=== PATIENT | female | born 1990 | race Caucasian/White ===

== ENCOUNTER 2018-10-28 13:32 | Inpatient (IN) | payer OTHER ==
--- NOTE | 2018-10-28 14:13 | PDOC ---
Rapid Medical Evaluation Chief Complaint: Nausea/Vomiting Time Seen by Provider: 10/28/18 14:05 Medical Evaluation: Allergies Allergy/AdvReac Type Severity Reaction Status Date / Time No Known Allergies Allergy Verified 10/28/18 14:04 10/28/18 14:06 I have performed a brief in-person evaluation of this patient. The patient presents with a chief complaint of:L flank/pelvic pain w/ n/v and ? dysuria today. Denies pmhx Pertinent physical exam findings:Pt radha significantly uncomfortable here w/ L suprapubic ttp and L CVAT I have ordered the following:labs/ua/meds The patient will proceed to the ED for further evaluation. 10/28/18 14:13 Discharge Disposition - Diagnosis Flank pain - Referrals - Patient Instructions - Post Discharge Activity
[2018-10-28] MEDS ORDERED: KETOROLAC TROMETHAMINE 30 MG/1 ML VIAL IVPUSH ONE (14:17)
[2018-10-28] MEDS ORDERED: KETOROLAC TROMETHAMINE 30 MG/1 ML VIAL ONE (14:29)
[2018-10-28] MEDS ORDERED: ONDANSETRON 4 MG/2 ML VIAL ONE (14:29)
[2018-10-28] MEDS ORDERED: SODIUM CHLORIDE 1,000 ML IV STA (14:31)
[2018-10-28] MEDS ORDERED: ONDANSETRON 4 MG/2 ML VIAL IVPUSH ONE (14:31)
--- NOTE | 2018-10-28 14:31 | PDOC ---
History of Present Illness - General History Source: Patient Exam Limitations: No Limitations <Estellemario albertoMaria Esther floresecca - Last Filed: 10/28/18 18:40> <Ingrid Hoyos - Last Filed: 10/31/18 10:05> - General Chief Complaint: Nausea/Vomiting Stated Complaint: NAUSEA/VOMITING Time Seen by Provider: 10/28/18 14:05 Past History - Travel Traveled outside of the country in the last 30 days: No Close contact w/someone who was outside of country & ill: No - Suicide/Smoking/Psychosocial Hx Smoking History: Never smoked Information on smoking cessation initiated: No Hx Alcohol Use: No Drug/Substance Use Hx: No <Carey Blanchard - Last Filed: 10/28/18 18:40> <Ingrid Hoyos - Last Filed: 10/31/18 10:05> - Past Medical History Allergies/Adverse Reactions: Allergies Allergy/AdvReac Type Severity Reaction Status Date / Time No Known Allergies Allergy Verified 10/28/18 14:04 Review of Systems - Review of Systems Able to Perform ROS?: Yes Comments:: 10/28/18 18:23 CONSTITUTIONAL: Absent: fever, chills, diaphoresis, generalized weakness, malaise, loss of appetite HEENT: Absent: rhinorrhea, nasal congestion, throat pain, throat swelling, difficulty swallowing, mouth swelling, ear pain, eye pain, visual Changes CARDIOVASCULAR: Absent: chest pain, loss of consciousness, palpitations, irregular heart rate, peripheral edema RESPIRATORY: Absent: cough, shortness of breath, dyspnea with exertion, orthopnea, wheezing, stridor, hemoptysis GASTROINTESTINAL: Present: vomiting Absent: abdominal pain, abdominal distension, nausea, diarrhea, constipation, melena, hematochezia GENITOURINARY: Present: dysuria, frequency, flank pain Absent: urgency, hesitancy, hematuria, genital pain MUSCULOSKELETAL: Absent: myalgia, arthralgia, joint swelling SKIN: Absent: rash, itching, pallor HEMATOLOGIC/IMMUNOLOGIC: Absent: easy bleeding, easy bruising, lymphadenopathy, frequent infections ENDOCRINE: Absent: unexplained weight gain, unexplained weight loss, heat intolerance, cold intolerance NEUROLOGIC: Absent: headache, focal weakness or paresthesias, dizziness, unsteady gait, seizure, mental status changes, bladder or bowel incontinence PSYCHIATRIC: Absent: anxiety, depression, suicidal or homicidal ideation, hallucinations. Is the patient limited Maltese proficient: No <Carey Blanchard - Last Filed: 10/28/18 18:40> *Physical Exam - Vital Signs Last Vital Signs Temp Pulse Resp BP Pulse Ox 98.2 F 91 H 16 131/77 99 10/28/18 14:05 10/28/18 14:05 10/28/18 14:05 10/28/18 14:05 10/28/18 14:05 - Physical Exam Comments: 10/28/18 18:24 GENERAL: Well developed, well nourished. Awake and alert. In moderate distress, actively vomiting HEENT: Normocephalic, atraumatic. PERRLA, EOMI. No conjunctival pallor. Sclera are non- icteric. Moist mucous membranes. Oropharynx is clear. NECK: Supple. Full ROM. No JVD. Carotid pulses 2+ and symmetric, without bruits. No thyromegaly. No lymphadenopathy. CARDIOVASCULAR: Regular rate and rhythm. No murmurs, rubs, or gallops. Distal pulses are 2+ and symmetric. PULMONARY: No evidence of respiratory distress. Lungs clear to auscultation bilaterally. No wheezing, rales or rhonchi. ABDOMINAL: TTP of the suprapubic region. Soft. Non-distended. No rebound or guarding. No organomegaly. Normoactive bowel sounds. MUSCULOSKELETAL Normal range of motion at all joints. No bony deformities or tenderness. (+) L CVA tenderness. EXTREMITIES: No cyanosis. No clubbing. No edema. No calf tenderness. SKIN: Warm and dry. Normal capillary refill. No rashes. No jaundice. NEUROLOGICAL: Alert, awake, appropriate. Cranial nerves 2-12 intact. No deficits to light touch and temperature in face, upper extremities and lower extremities. No motor deficits in the in face, upper extremities and lower extremities. Normoreflexic in the upper and lower extremities. Normal speech. Toes are down- going bilaterally. Gait is normal without ataxia. PSYCHIATRIC: Cooperative. Good eye contact. Appropriate mood and affect. <Carey Blanchard - Last Filed: 10/28/18 18:40> - Vital Signs Last Vital Signs Temp Pulse Resp BP Pulse Ox 99.2 F 72 18 126/84 100 10/30/18 15:50 10/30/18 15:50 10/30/18 15:50 10/30/18 15:50 10/30/18 09:00 <Ingrid Hoyos - Last Filed: 10/31/18 10:05> ED Treatment Course - LABORATORY CBC & Chemistry Diagram: 10/28/18 15:00 10/28/18 15:00 <Carey Blanchard - Last Filed: 10/28/18 18:40> - LABORATORY CBC & Chemistry Diagram: 10/30/18 08:24 10/30/18 08:24 - ADDITIONAL ORDERS Additional order review: 10/28/18 15:00 Urine Culture - Final Urine - Urine Clean Catch Normal Urogenital Louann 10/28/18 15:00 RBC 4.55 MCV 84.9 MCHC 33.7 RDW 15.0 MPV 9.5 Neutrophils % 71.2 Lymphocytes % 17.9 Monocytes % 9.1 Eosinophils % 1.2 Basophils % 0.6 - Medications Given in the ED: ED Medications Discontinued Medications Generic Name Dose Route Start Last Admin Trade Name Jaqueline PRN Reason Stop Dose Admin Acetaminophen 1,000 mg 10/28/18 18:19 10/28/18 19:03 Ofirmev Injection - IVPB 10/28/18 18:20 1,000 mg ONCE ONE Administration Docusate Sodium 100 mg 10/28/18 22:00 10/30/18 10:07 Colace - PO 100 mg BID ANDREW Administration Sodium Chloride 1,000 mls @ 1,000 mls/hr 10/28/18 14:31 10/28/18 14:56 Normal Saline - IV 10/28/18 15:30 1,000 mls/hr ASDIR STA Administration Ceftriaxone Sodium 1,000 mg/ 50 mls @ 100 mls/hr 10/28/18 18:21 10/28/18 19: 03 Dextrose IVPB 10/28/18 18:50 100 mls/hr ONCE ONE Administration Sodium Chloride 1,000 mls @ 100 mls/hr 10/29/18 08:45 10/30/18 07:58 Normal Saline - IV 100 mls/hr ASDIR ANDREW Administration Ceftriaxone Sodium 1 gm/ 50 mls @ 100 mls/hr 10/29/18 10:00 10/30/18 10:07 Dextrose IVPB 100 mls/hr DAILY ANDREW Administration Protocol Ketorolac Tromethamine 30 mg 10/28/18 14:17 10/28/18 14:38 Toradol Injection - IVPUSH 10/28/18 14:18 30 mg ONCE ONE Administration Ondansetron HCl 4 mg 10/28/18 14:31 10/28/18 14:38 Zofran Injection IVPUSH 10/28/18 14:32 4 mg ONCE ONE Administration Senna 2 tab 10/28/18 22:00 10/29/18 22:15 Senna - PO Not Given HS ANDREW Tamsulosin HCl 0.4 mg 10/28/18 18:31 10/28/18 19:58 Flomax - PO 10/28/18 18:32 0.4 mg ONCE ONE Administration Vancomycin HCl 1,000 mg 10/28/18 22:58 10/29/18 00:27 Vancomycin (Pre-Docked) IVPB 10/28/18 22:59 1,000 mg ONCE ONE Administration Protocol <Ingrid Hoyos - Last Filed: 10/31/18 10:05> Medical Decision Making - Medical Decision Making 10/28/18 18:25 The patient is a 28-year-old female no past medical history who presents to the ER today with sudden onset of nausea vomiting and left flank pain. She states her symptoms started approximately an hour prior to arrival. She notes that the pain is very sharp. he notes that it is mostly on the left side however she is also having right-sided pain and associated nausea and vomiting.She has no past medical history of kidney stones. Denies fevers, chills, chest pain, shortness of breath, diarrhea, constipation dysuria and hematuria A/P: Left-sided flank pain On exam patient with left CVA tenderness, actively vomiting and uncomfortable appearing High suspicion for stone. toradol and Zofran given with relief of symptoms Basic labs, urine/culture and spiral CT ordered Urine is positive for infection with positive leukocytes and white blood cells. CT spiral shows a3 mm stone in the left UVJ with associated moderate hydronephrosis Given positive stone with urinary tract infection will admit at this time 1 g of ceftriaxone given. Hospitalist paged Urology florist supplies salesperson paged <Carey Blanchard - Last Filed: 10/28/18 18:40> *DC/Admit/Observation/Transfer - Discharge Dispostion Decision to Admit order: Yes <Carey Blanchard - Last Filed: 10/28/18 18:40> - Attestations Physician Attestion: I reviewed the case with the mid-level practitioner and agree with the mid- level practitioner's assessment, diagnosis and disposition. <Ingrid Hoyos - Last Filed: 10/31/18 10:05> Diagnosis at time of Disposition: Kidney stone UTI (urinary tract infection) Qualifiers: Urinary tract infection type: acute cystitis Hematuria presence: with hematuria Qualified Code(s): N30.01 - Acute cystitis with hematuria - Discharge Dispostion Disposition: HOME Condition at time of disposition: Improved
[2018-10-28 15:15] LABS: BASO % 0.6 % (0-2.0); EOS % 1.2 % (0-4.5); HEMATOCRIT 38.7 % (32.4-45.2); LYMPH % 17.9 % (8-40); MCH 28.6 pg (25.7-33.7); MCHC 33.7 g/dl (32.0-36.0); MEAN CELL VOLUME 84.9 fl (80-96); MEAN PLT VOLUME 9.5 fl (7.5-11.1); MONO % 9.1 % (3.8-10.2); NEUT % 71.2 % (42.8-82.8); PLATELET COUNT 262 K/MM3 (134-434); RBC 4.55 M/mm3 (3.60-5.2); WHITE BLOOD COUNT 6.4 K/mm3 (4.0-10.0)
[2018-10-28 15:30] LABS: EPI CELLS 31.7 /HPF (0-5/HPF); HYALINE CASTS 25 /lpf (0-8); PH,URINE >= 9.0 (5.0-8.0); URINE APPEARANCE CLOUDY; URINE BACTERIA 389.2 /hpf (NEGATIVE); URINE BILIRUBIN NEGATIVE (NEGATIVE); URINE COLOR YELLOW; URINE GLUCOSE (UA) NEGATIVE (NEGATIVE); URINE KETONE TRACE (NEGATIVE); URINE LEUK ESTERASE 1+ (NEGATIVE); URINE NITRITE NEGATIVE (NEGATIVE); URINE PROTEIN 1+ (NEGATIVE); URINE RBC 72 /hpf (0-4); URINE UROBILINOGEN 0.2 mg/dL (0.2-1.0); URINE WBC 9 /hpf (0-5)
[2018-10-28 15:47] LABS: ALBUMIN 4.2 g/dl (3.4-5.0); BLOOD UREA NITROGEN 16.1 mg/dL (7-18); CALCIUM 9.4 mg/dL (8.5-10.1); TOT PROT 7.5 g/dl (6.4-8.2)
[2018-10-28] MEDS ORDERED: ACETAMINOPHEN 1000 MG/100 ML VIAL (NON FORMULARY) IVPB ONE (18:19)
[2018-10-28] MEDS ORDERED: CEFTRIAXONE 1,000 MG in DEXTROSE 5%-WATER - 50 ML IVPB ONE (18:21)
[2018-10-28] MEDS ORDERED: TAMSULOSIN HCL 0.4 MG CAP PO ONE (18:31)
[2018-10-28] MEDS ORDERED: ACETAMINOPHEN 325 MG TABLET (FP) PO PRN (18:40)
[2018-10-28] MEDS ORDERED: KETOROLAC TROMETHAMINE 15 MG/ML VIAL IVPUSH PRN (18:40)
[2018-10-28] MEDS ORDERED: CEFTRIAXONE 1 GM/50 ML BAG ONE (19:02)
[2018-10-28] MEDS ORDERED: ACETAMINOPHEN INJECTION 100 ML IVPB ONE (19:02)
--- NOTE | 2018-10-28 19:27 | HP ---
Admitting History and Physical - Primary Care Physician PCP: none - Admission Chief Complaint: left sided pain and pelvic pain History of Present Illness: 28 year old F with no significant past medical history reports left flank pain which began on the morning (11:30am) of 10/28; associated symptoms include nausea , suprapubic pain and five episodes of vomiting. She denies fever/chills, diarrhea, dysuria, hematuria, chest pain or SOB. She was driven to ED by family friend for urgent evaluation. In ED vitals were: BP 131/77, HR 91, RR 16, O2 sat 99%, T 98.2. Flank pain, N/V managed with Toradol and Zofran UA: +1 Leuk, +2 blood, +1 protein, trace ketones and bacteria 389--> ceftriaxone 1g given CT spiral shows a3 mm stone in the left UVJ with associated moderate hydronephrosis pt admitted for further management of UTI/left obstructing renal stone History Source: Patient Limitations to Obtaining History: No Limitations - Past Medical History ...: No (urine preg test negative) - Advance Directives Advance Directives: Yes: Health Care Proxy (: Bon [place]o [phone]) - Smoking History Smoking history: Never smoked - Alcohol/Substance Use Hx Alcohol Use: No History of Substance Use: reports: None - Social History Usual Living Arrangement: Yes: With Spouse, With Child ADL: Independent Occupation: unemployed History of Recent Travel: No Other Social History: Born in [facility] Home Medications - Allergies Allergies/Adverse Reactions: Allergies Allergy/AdvReac Type Severity Reaction Status Date / Time No Known Allergies Allergy Verified 10/28/18 14:04 - Home Medications Home Medications: Ambulatory Orders NK [No Known Home Medication] 10/28/18 Family Disease History - Family Disease History Family Disease History: Other: Father (alive (66) well), Mother (alive (51) well ), Sister (alive (25) asthma) Review of Systems - Review of Systems Constitutional: reports: No Symptoms Eyes: reports: No Symptoms HENT: reports: No Symptoms Neck: reports: No Symptoms Cardiovascular: reports: No Symptoms Respiratory: reports: No Symptoms Gastrointestinal: reports: Nausea, Vomiting Genitourinary: reports: Flank Pain, Other (pelvic pain) Breasts: reports: No Symptoms Reported Musculoskeletal: reports: No Symptoms Integumentary: reports: No Symptoms Neurological: reports: No Symptoms Endocrine: reports: No Symptoms Hematology/Lymphatic: reports: No Symptoms Psychiatric: reports: No Symptoms Physical Examination Vital Signs: Vital Signs Temperature 98.2 F 10/28/18 14:05 Pulse Rate 91 H 10/28/18 14:05 Respiratory Rate 16 10/28/18 14:05 Blood Pressure 131/77 10/28/18 14:05 O2 Sat by Pulse Oximetry (%) 99 10/28/18 14:05 Constitutional: Yes: Well Nourished, No Distress, Calm Eyes: Yes: Conjunctiva Clear, EOM Intact, PERRL HENT: Yes: Atraumatic, Normocephalic Neck: Yes: Supple, Trachea Midline Cardiovascular: Yes: Regular Rate and Rhythm Respiratory: Yes: Regular, CTA Bilaterally Gastrointestinal: Yes: Normal Bowel Sounds, Soft ...Rectal Exam: Yes: Deferred Renal/: Yes: CVA Tenderness - Left, CVA Tenderness - Right, Other (bladder tenderness) Musculoskeletal: Yes: WNL Extremities: Yes: WNL Edema: No Peripheral Pulses WNL: Yes Peripheral Pulses: Left Radial: 2+, Right Radial: 2+, Left Doralis Pedis: 2+, Right Dorsalis Pedis: 2+ Integumentary: Yes: WNL Neurological: Yes: Alert, Oriented ...Motor Strength: WNL Psychiatric: Yes: Alert, Oriented Labs: CBC, BMP 10/28/18 15:00 10/28/18 15:00 Imaging - Results Cat Scan: Report Reviewed (ABD/PELV CT 10/27/2018 Impression: 3mm Left ureterovesical junction calculus is seen with resultant mild hydronephrosis. 2mm non-obstructing right renal calculus. Read by Dr. Ambrocio Tovar MD) Problem List - Problems (1) Prophylactic measure Assessment/Plan: bowel regimen with senna and colace OOB to chair Ambulate no need for SC heparin Code(s): Z29.9 - ENCOUNTER FOR PROPHYLACTIC MEASURES, UNSPECIFIED (2) Kidney stone Assessment/Plan: urology consult placed IVF hydration overnight Ketorolac PRN severe pain APAP PRN moderate pain Code(s): N20.0 - CALCULUS OF KIDNEY (3) UTI (urinary tract infection) Assessment/Plan: ceftriaxone 1g daily for UTI, (may need ID approval, pharmacy approved a one time dose for the morning of 10/29) Vanco 1g overnight for temp 101.2 f/u urine culture blood cultures x 2 sent trend WBC and temp curve Code(s): N39.0 - URINARY TRACT INFECTION, SITE NOT SPECIFIED Qualifiers: Urinary tract infection type: acute cystitis Hematuria presence: with hematuria Qualified Code(s): N30.01 - Acute cystitis with hematuria Assessment/Plan DISPO: home when stable Code status: Full Visit type - Emergency Visit Emergency Visit: Yes ED Registration Date: 10/28/18 Care time: The patient presented to the Emergency Department on the above date and was hospitalized for further evaluation of their emergent condition. - New Patient This patient is new to me today: Yes Date on this admission: 10/28/18 - Critical Care Critical Care patient: No
[2018-10-28] MEDS ORDERED: TAMSULOSIN HCL 0.4 MG CAP ONE (19:48)
[2018-10-28] MEDS ORDERED: CEFTRIAXONE 1 GM in DEXTROSE 5%-WATER - 50 ML IVPB ONE (20:00)
[2018-10-28] MEDS ORDERED: SENNOSIDES 8.6MG TABLET (FP) PO ONE (22:22)
[2018-10-28] MEDS ORDERED: DOCUSATE SODIUM 100 MG CAPSULE (FP) PO ONE (22:23)
[2018-10-28] MEDS: SENNOSIDES 8.6MG TABLET (FP) PO SCH (22:32)
[2018-10-28] MEDS: DOCUSATE SODIUM 100 MG CAPSULE (FP) PO SCH (22:32)
[2018-10-28] MEDS ORDERED: VANCOMYCIN 1 GM in D5W (PRE-DOCKED) 1,000 MG/250 ML IVPB ONE (22:58)
[2018-10-29 00:21] VITALS: BMI 22.7
[2018-10-29] MEDS ORDERED: CEFTRIAXONE 1 GM in DEXTROSE 5%-WATER - 50 ML IVPB ONE (08:00)
--- NOTE | 2018-10-29 08:16 | CONSULT ---
Consult - text type - Consultation Consultation Note: CC: left ureteral stone parially obstructing with UTI HPI: Patient is a 28 year old female with history of left flank pain. Patient on presentation stated she experienced nausea an vomiting. She denied gross hematuria, fever, or chills. Patient is currently comfortable without nausea, vomiting, fever, or chills. PE VSS; afeb abd-soft, NT; no CVAT bilaterally CT scan reviewed UA noted renal function and WBC WNL imp uti distal 3mm ureteral stone which is partially obstructing plan hydration strain all urine flomax Rocephin follow conservatively as stone should pass follow urine culture
[2018-10-29 08:31] LABS: BASO % 0.6 % (0-2.0); EOS % 4.3 % (0-4.5); HEMATOCRIT 34.8 % (32.4-45.2); HEMOGLOBIN 11.6 GM/dL (10.7-15.3); LYMPH % 37.2 % (8-40); MCH 28.6 pg (25.7-33.7); MCHC 33.4 g/dl (32.0-36.0); MEAN CELL VOLUME 85.8 fl (80-96); MEAN PLT VOLUME 9.5 fl (7.5-11.1); MONO % 11.3 % (3.8-10.2); NEUT % 46.6 % (42.8-82.8); PLATELET COUNT 216 K/MM3 (134-434); RBC 4.05 M/mm3 (3.60-5.2); RDW 15.1 % (11.6-15.6); WHITE BLOOD COUNT 5.6 K/mm3 (4.0-10.0)
--- NOTE | 2018-10-29 08:36 | PN ---
Physical Exam: SUBJECTIVE: Patient seen and examined at bedside. Patient denies pain, fever/ chills, diarrhea, dysuria, hematuria, chest pain or SOB. PT states she has been instructed on straining her urine. PT states she normally have bowel movements every other day OBJECTIVE: Vital Signs Period Temp Pulse Resp BP Sys/Fontanez Pulse Ox Last 24 Hr 98.1 F-101.2 F 67-91 16-18 96-131/55-77 99-99 GENERAL: The patient is awake, alert, and fully oriented, in no acute distress. HEAD: Normal with no signs of trauma. EYES: PERRL, extraocular movements intact, sclera anicteric, conjunctiva clear. No ptosis. NECK: Trachea midline, full range of motion, supple. LUNGS: Breath sounds equal, clear to auscultation bilaterally, no wheezes, no crackles, no accessory muscle use. HEART: Regular rate and rhythm, S1, S2 ABDOMEN: Soft, nontender, nondistended, normoactive bowel sounds, no guarding, no rebound, no hepatosplenomegaly, no masses. Renal/: CVA Tenderness - Left, CVA Tenderness - Right, Other (bladder tenderness) EXTREMITIES: 2+ pulses, warm, well-perfused, no edema. NEUROLOGICAL: Normal speech, gait not observed. PSYCH: Normal mood, normal affect. SKIN: Warm, dry, normal turgor, no rashes or lesions noted Laboratory Results - last 24 hr 10/28/18 10/28/18 10/28/18 15:00 15:00 15:00 WBC 6.4 RBC 4.55 Hgb 13.0 Hct 38.7 MCV 84.9 MCH 28.6 MCHC 33.7 RDW 15.0 Plt Count 262 MPV 9.5 Absolute Neuts (auto) 4.6 Neutrophils % 71.2 Lymphocytes % 17.9 Monocytes % 9.1 Eosinophils % 1.2 Basophils % 0.6 Nucleated RBC % 0 Sodium 139 Potassium 4.0 Chloride 108 H Carbon Dioxide 25 Anion Gap 6 L BUN 16.1 Creatinine 1.0 Est GFR (CKD-EPI)AfAm 89.41 Est GFR (CKD-EPI)NonAf 77.15 Random Glucose 113 H Calcium 9.4 Total Bilirubin 1.0 AST 13 L ALT 20 Alkaline Phosphatase 93 Total Protein 7.5 Albumin 4.2 Urine Color Urine Appearance Urine pH Ur Specific [place] Urine Protein Urine Glucose (UA) Urine Ketones Urine Blood Urine Nitrite Urine Bilirubin Urine Urobilinogen Ur Leukocyte Esterase Urine WBC (Auto) Urine RBC (Auto) Urine Casts (Auto) U Pathogenic Cast Auto U Epithel Cells (Auto) U Sm Round Cell (Auto) Urine Bacteria (Auto) Urine HCG, Qual Negative 10/28/18 15:00 WBC RBC Hgb Hct MCV MCH MCHC RDW Plt Count MPV Absolute Neuts (auto) Neutrophils % Lymphocytes % Monocytes % Eosinophils % Basophils % Nucleated RBC % Sodium Potassium Chloride Carbon Dioxide Anion Gap BUN Creatinine Est GFR (CKD-EPI)AfAm Est GFR (CKD-EPI)NonAf Random Glucose Calcium Total Bilirubin AST ALT Alkaline Phosphatase Total Protein Albumin Urine Color Yellow Urine Appearance Cloudy Urine pH >= 9.0 H Ur Specific [place] 1.028 Urine Protein 1+ H Urine Glucose (UA) Negative Urine Ketones Trace H Urine Blood 2+ H Urine Nitrite Negative Urine Bilirubin Negative Urine Urobilinogen 0.2 Ur Leukocyte Esterase 1+ H Urine WBC (Auto) 9 Urine RBC (Auto) 72 Urine Casts (Auto) 25 U Pathogenic Cast Auto None U Epithel Cells (Auto) 31.7 U Sm Round Cell (Auto) None Urine Bacteria (Auto) 389.2 Urine HCG, Qual Active Medications Generic Name Dose Route Start Last Admin Trade Name Freq PRN Reason Stop Dose Admin Acetaminophen 650 mg 10/28/18 18:40 Tylenol - PO Q6H PRN PAIN LEVEL 4 - 6 Docusate Sodium 100 mg 10/28/18 22:00 10/28/18 22:32 Colace - PO 100 mg BID ANDREW Administration Sodium Chloride 1,000 mls @ 100 mls/hr 10/29/18 08:45 Normal Saline - IV ASDIR ANDREW Ceftriaxone Sodium 1 gm/ 100 mls @ 100 mls/hr 10/30/18 08:00 Dextrose IVPB DAILY [facility] Protocol Ketorolac Tromethamine 15 mg 10/28/18 18:40 Toradol Injection - IVPUSH 11/02/18 18:39 Q6H PRN PAIN LEVEL 7 - 10 Senna 2 tab 10/28/18 22:00 10/28/18 22:32 Senna - PO 2 tab HS ANDREW Administration ASSESSMENT/PLAN: 28 year old F with no significant past medical history reports left flank pain which began on the morning (11:30am) of 10/28; associated symptoms include nausea , suprapubic pain and five episodes of vomiting. Kidney stone -Urology Consulted Plan as follows -hydration -strain all urine -flomax -Rocephin -follow conservatively as stone should pass -follow urine culture -Monitor BUN/Creat -IVF hydration NS 100ml/hr -Ketorolac PRN severe pain -APAP PRN moderate pain UTI (urinary tract infection) -Per urology consult, will continue Rocephin 1gm daily IV -Blood culture pending -Urine Culture Pending F/E/N -PO and IV Fluids -Repleat as indicated DVT Prophylaxis -OOB to chair -Early Ambulation -SCDs Dispo Continues to require inpatient status Full Code Visit type - Emergency Visit Emergency Visit: Yes ED Registration Date: 10/28/18 Care time: The patient presented to the Emergency Department on the above date and was hospitalized for further evaluation of their emergent condition. - New Patient This patient is new to me today: Yes Date on this admission: 10/29/18 - Critical Care Critical Care patient: No
[2018-10-29 08:43] LABS: INR 1.13 (0.83-1.09); PROTHROMBIN TIME (PATIENT) 13.4 SEC (9.7-13.0)
[2018-10-29 08:44] LABS: ACTIVATED PTT 32.2 SECONDS (25.2-36.5)
[2018-10-29] MEDS ORDERED: cefTRIAXone SODIUM 1 GM VIAL ONE (09:10)
[2018-10-29] MEDS ORDERED: DEXTROSE 5%-WATER - 50 ML IVPB ONE (09:10)
[2018-10-29] MEDS: DOCUSATE SODIUM 100 MG CAPSULE (FP) PO SCH ×2 (09:15→22:15)
[2018-10-29] MEDS: CEFTRIAXONE 1 GM in DEXTROSE 5%-WATER - 50 ML IVPB SCH (09:16)
[2018-10-29] MEDS: SODIUM CHLORIDE 1,000 ML IV SCH ×2 (09:17→21:11)
[2018-10-29 09:18] LABS: ALBUMIN 3.6 g/dl (3.4-5.0); BLOOD UREA NITROGEN 10.3 mg/dL (7-18); CALCIUM 9.2 mg/dL (8.5-10.1); CREATININE 0.8 mg/dL (0.55-1.3); MAGNESIUM 2.1 mg/dL (1.8-2.4); PHOSPHOROUS 3.6 mg/dL (2.5-4.9); POTASSIUM 4.1 mmol/L (3.5-5.1); TOT PROT 6.4 g/dl (6.4-8.2)
[2018-10-29] MEDS: SENNOSIDES 8.6MG TABLET (FP) PO SCH (22:15)
[2018-10-30] MEDS: SODIUM CHLORIDE 1,000 ML IV SCH (07:58)
[2018-10-30 08:40] LABS: HEMATOCRIT 34.1 % (32.4-45.2); HEMOGLOBIN 11.3 GM/dL (10.7-15.3); MCH 28.6 pg (25.7-33.7); MCHC 33.2 g/dl (32.0-36.0); MEAN PLT VOLUME 8.9 fl (7.5-11.1); RBC 3.97 M/mm3 (3.60-5.2); RDW 15.4 % (11.6-15.6); WHITE BLOOD COUNT 4.5 K/mm3 (4.0-10.0)
[2018-10-30 09:08] LABS: ALBUMIN 3.2 g/dl (3.4-5.0); BILIRUBIN,TOTAL 0.7 mg/dL (0.2-1); BLOOD UREA NITROGEN 9.7 mg/dL (7-18); CALCIUM 8.1 mg/dL (8.5-10.1); CREATININE 0.7 mg/dL (0.55-1.3); MAGNESIUM 1.9 mg/dL (1.8-2.4); POTASSIUM 3.9 mmol/L (3.5-5.1)
[2018-10-30 09:15] LABS: PLATELET COUNT 221 K/MM3 (134-434)
[2018-10-30] MEDS ORDERED: cefTRIAXone SODIUM 1 GM VIAL ONE (10:03)
[2018-10-30] MEDS ORDERED: DEXTROSE 5%-WATER - 50 ML IVPB ONE (10:04)
[2018-10-30] MEDS: CEFTRIAXONE 1 GM in DEXTROSE 5%-WATER - 50 ML IVPB SCH (10:07)
[2018-10-30] MEDS: DOCUSATE SODIUM 100 MG CAPSULE (FP) PO SCH (10:07)
--- NOTE | 2018-10-30 11:19 | PN ---
Progress Note, Physician Chief Complaint: nausea and vomiting History of Present Illness: Seen and examined at bedside. No acute events overnight. Feeling well. No pain. Straining urine, states urine is "kita." No fevers, good appetite - Current Medication List Current Medications: Active Medications Acetaminophen (Tylenol -) 650 mg PO Q6H PRN PRN Reason: PAIN LEVEL 4 - 6 Docusate Sodium (Colace -) 100 mg PO BID [facility] Last Admin: 10/30/18 10:07 Dose: 100 mg Sodium Chloride (Normal Saline -) 1,000 mls @ 100 mls/hr IV ASDIR ANDREW Last Admin: 10/30/18 07:58 Dose: 100 mls/hr Ceftriaxone Sodium 1 gm/ (Dextrose) 50 mls @ 100 mls/hr IVPB DAILY [facility]; Protocol Last Admin: 10/30/18 10:07 Dose: 100 mls/hr Ketorolac Tromethamine (Toradol Injection -) 15 mg IVPUSH Q6H PRN PRN Reason: PAIN LEVEL 7 - 10 Stop: 11/02/18 18:39 Senna (Senna -) 2 tab PO HS [facility] Last Admin: 10/29/18 22:15 Dose: Not Given - Objective Vital Signs: Vital Signs Temperature 97.8 F 10/30/18 10:07 Pulse Rate 76 10/30/18 10:07 Respiratory Rate 18 10/30/18 10:07 Blood Pressure 112/67 10/30/18 10:07 O2 Sat by Pulse Oximetry (%) 98 10/29/18 21:00 Constitutional: Yes: Well Nourished, No Distress, Calm Cardiovascular: Yes: WNL, Regular Rate and Rhythm Respiratory: Yes: WNL, Regular, CTA Bilaterally Gastrointestinal: Yes: WNL, Normal Bowel Sounds, Soft. No: Tenderness, Tenderness, Epigastrium Genitourinary: No: Bladder Distention, CVA Tenderness - Left, CVA Tenderness - Right, Hematuria Musculoskeletal: Yes: WNL Extremities: Yes: WNL Edema: No Peripheral Pulses WNL: Yes Labs: CBC, BMP 10/30/18 08:24 10/30/18 08:24 INR, PTT INR 1.13 (0.83-1.09) H 10/29/18 07:40 Problem List - Problems (1) Kidney stone Code(s): N20.0 - CALCULUS OF KIDNEY (2) UTI (urinary tract infection) Code(s): N39.0 - URINARY TRACT INFECTION, SITE NOT SPECIFIED Qualifiers: Urinary tract infection type: acute cystitis Hematuria presence: with hematuria Qualified Code(s): N30.01 - Acute cystitis with hematuria Assessment/Plan 28 year old from , here for 2 months, presents with lower abdominal pain, nausea and vomiting found to have 3 mm UVJ stone 1) Renal colic, 3 mm UVJ stone with mild hydronephrosis -IV hydration -strain urine -pain is controlled - eval appreciated -cw catia -SARA planning within 24 hours -needs to establish outpatient care 2) UTI -urine cx negative -would continue abx for 3-5 days given clinical presentation
[2018-10-30 15:52] VITALS: BP 126/84; PULSE 72; TEMP 99.2
--- NOTE | 2018-10-30 16:59 | DS ---
Physical Examination Vital Signs: Vital Signs Temperature 99.2 F 10/30/18 15:50 Pulse Rate 72 10/30/18 15:50 Respiratory Rate 18 10/30/18 15:50 Blood Pressure 126/84 10/30/18 15:50 O2 Sat by Pulse Oximetry (%) 100 10/30/18 09:00 Constitutional: Yes: Well Nourished, No Distress, Calm Cardiovascular: Yes: WNL, Regular Rate and Rhythm Respiratory: Yes: WNL, Regular, CTA Bilaterally Gastrointestinal: Yes: WNL, Normal Bowel Sounds, Soft Renal/: No: CVA Tenderness - Left, CVA Tenderness - Right Musculoskeletal: Yes: WNL Extremities: Yes: WNL Edema: No Peripheral Pulses WNL: Yes Labs: CBC, BMP 10/30/18 08:24 10/30/18 08:24 Discharge Summary Reason For Visit: UTI CALCULUS OF KIDNEY Current Active Problems Kidney stone (Acute) Prophylactic measure (Acute) UTI (urinary tract infection) (Acute) Hospital Course: 28 year old from , here for 2 months, presents with lower abdominal pain, nausea and vomiting found to have 3 mm UVJ stone 1) Renal colic, 3 mm UVJ stone with mild hydronephrosis -hydrated -passed stone -pain is controlled - eval appreciated -received rocephin, urine cx negative -cleared by DC by urology, outpatient follow-up -needs to establish outpatient care-resident clinic info given 2) UTI -urine cx negative -would continue abx for 3-5 days given clinical presentation Condition: Improved - Instructions Referrals: Zeus Ibarra MD [Staff Physician] - Jaime Gerard MD [Staff Physician] - Disposition: HOME - Home Medications Comprehensive Discharge Medication List: Ambulatory Orders Cefuroxime Axetil [Ceftin -] 500 mg PO Q12H #10 tablet 10/30/18
== END 2018-10-30 18:08 | disposition home or self-care (01) | DRG 463 ==
LOC: JER 13:32 → JERBED 18:41 → J5S 10-29 00:08
PROVIDERS: ATTEND Internal Medicine
DX: N13.6 Pyonephrosis (principal); R11.2 Nausea with vomiting, unspecified; R10.30 Lower abdominal pain, unspecified
CPT/HCPCS: 36415; 71045-TC-FY; 74176-TC; 80053; 81003; 83735; 84100; 84443; 84703; 85025; 85027; 85610; 85730; 87040; 87086; 99284-25; J0131; J7030

== ENCOUNTER 2021-12-11 14:40 | Inpatient (IN) | payer OTHER ==
[2021-12-11] MEDS ORDERED: ELECTROLYTE-148 SOLN 500 ML IV ONE (15:07)
[2021-12-11] MEDS ORDERED: CITRIC ACID/SODIUM CITRATE 30 ML UNIT-DOSE CUP PO ONE (17:42)
[2021-12-11] MEDS ORDERED: ELECTROLYTE-148 SOLN 1,000 ML IV SCH (17:45)
[2021-12-11] MEDS ORDERED: morphine SULFATE/PF 1 MG/2 ML (2cc Syringe - QUVA) ONE (18:27)
[2021-12-11] MEDS ORDERED: ceFAZolin SODIUM 1 GM VIAL ONE (18:28)
[2021-12-11] MEDS ORDERED: SODIUM CHLORIDE 0.9% P/F 10 ML VIAL IJ ONE (18:28)
[2021-12-11] MEDS ORDERED: IBUPROFEN 800 MG/8 ML IJ IVPB PRN (18:35)
[2021-12-11] MEDS ORDERED: WITCH HAZEL 50% (TUCKS) 40 PAD/JAR PAD TP PRN (18:35)
[2021-12-11] MEDS ORDERED: METHYLERGONOVINE MALEATE 0.2 MG/1 ML AMP IM PRN (18:35)
[2021-12-11] MEDS ORDERED: ACETAMINOPHEN 325 MG TABLET (FP) PO PRN (18:35)
[2021-12-11 18:45] VITALS: BMI 27.4
[2021-12-11] MEDS ORDERED: PHENYLEPHRINE HCL 10 MG/1 ML SINGLE DOSE VIAL ONE (18:45)
[2021-12-11 18:50] LABS: BASO % 0.5 % (0-2.0); EOS % 0.6 % (0-4.5); HEMATOCRIT 36.1 % (32.4-45.2); HEMOGLOBIN 12.3 GM/dL (10.7-15.3); LYMPH % 24.2 % (8-40); MCH 29.8 pg (25.7-33.7); MCHC 34.1 g/dl (32.0-36.0); MEAN CELL VOLUME 87.4 fl (80-96); MEAN PLT VOLUME 9.5 fl (7.5-11.1); MONO % 9.3 % (3.8-10.2); NEUT % 65.4 % (42.8-82.8); PLATELET COUNT 191 10^3/uL (134-434); RBC 4.14 M/mm3 (3.60-5.2); RDW 15.4 % (11.6-15.6); WHITE BLOOD COUNT 7.9 K/mm3 (4.0-10.0)
[2021-12-11] MEDS ORDERED: OXYTOCIN 10 UNITS/ML VIAL ONE ×2 (18:55→19:25)
[2021-12-11] MEDS ORDERED: ONDANSETRON 4 MG/2 ML VIAL ONE (19:05)
[2021-12-11] MEDS ORDERED: MIDAZOLAM HCL 2 MG/2 ML SINGLE DOSE VIAL ONE (19:15)
[2021-12-11 19:17] LABS: BLOOD UREA NITROGEN 10.4 mg/dL (7-18); CALCIUM 8.8 mg/dL (8.5-10.1)
[2021-12-11 19:21] LABS: CREATININE 0.6 mg/dL (0.55-1.3)
[2021-12-11] MEDS ORDERED: morphine SULFATE/PF 1 MG/2 ML (2cc Syringe - QUVA) EP ONE (19:21)
[2021-12-11] MEDS ORDERED: ONDANSETRON 4 MG/2 ML VIAL IVPUSH PRN (19:21)
[2021-12-11 19:47] LABS: CORD BASE EXCESS -2.6 mmol/L (0-2); CORD HCO3 24.1 mmHg (20-29); CORD PCO2 49.9 mmHg (30-78); CORD pH 7.302 (7.14-7.44)
[2021-12-11 19:51] LABS: CORD BASE EXCESS -1.8 mmol/L (0-2); CORD HCO3 22.1 mmHg (20-29); CORD PCO2 34.7 mmHg (30-78); CORD pH 7.421 (7.14-7.44)
[2021-12-11 20:05] LABS: INR 1.02 (0.83-1.09); PROTHROMBIN TIME (PATIENT) 11.7 SEC (9.7-13.0)
[2021-12-11 20:11] LABS: HIV INTERPRETATION NEGATIVE (NEGATIVE)
[2021-12-11] MEDS: OXYTOCIN 20 UNITS in 0.9% NS 20 UNIT/1,000 ML INFUS.BAG IV SCH (21:00)
[2021-12-11] MEDS ORDERED: OXYTOCIN 20 UNITS in 0.9% NS 20 UNIT/1,000 ML INFUS.BAG IV ONE (21:05)
[2021-12-12] MEDS: SIMETHICONE 80 MG TAB.CHEW (FP) PO PRN ×2 (00:32→21:37)
[2021-12-12] MEDS: OXYTOCIN 20 UNITS in 0.9% NS 20 UNIT/1,000 ML INFUS.BAG IV SCH (05:47)
[2021-12-12 08:30] LABS: BASO % 0.4 % (0-2.0); EOS % 0.5 % (0-4.5); HEMATOCRIT 35.3 % (32.4-45.2); HEMOGLOBIN 11.7 GM/dL (10.7-15.3); LYMPH % 12.4 % (8-40); MCHC 33.1 g/dl (32.0-36.0); MEAN CELL VOLUME 87.7 fl (80-96); MEAN PLT VOLUME 9.9 fl (7.5-11.1); NEUT % 79.7 % (42.8-82.8); PLATELET COUNT 169 10^3/uL (134-434); RBC 4.03 M/mm3 (3.60-5.2); RDW 15.2 % (11.6-15.6); WHITE BLOOD COUNT 10.7 K/mm3 (4.0-10.0)
[2021-12-12] MEDS ORDERED: BUTORPHANOL TARTRATE 2 MG/ML VIAL IVPB PRN (09:41)
[2021-12-12] MEDS: PRENATAL VITAMINS W/ FOLIC ACID TABLET (FP) PO SCH (09:41)
[2021-12-12] MEDS: FERROUS SO4 325 MG TABLET (FP) PO SCH ×2 (09:41→18:01)
[2021-12-12] MEDS: IBUPROFEN 600 MG TABLET (FP) PO PRN (13:52)
[2021-12-12] MEDS ORDERED: BISACODYL 10 MG SUPP.RECT RC PRN (18:36)
[2021-12-13] MEDS: IBUPROFEN 600 MG TABLET (FP) PO PRN ×2 (00:16→17:12)
[2021-12-13] MEDS ORDERED: oxyCODONE HCL 5 MG TABLET PO PRN ×2 (06:36)
[2021-12-13] MEDS: PRENATAL VITAMINS W/ FOLIC ACID TABLET (FP) PO SCH (09:15)
[2021-12-13] MEDS: FERROUS SO4 325 MG TABLET (FP) PO SCH ×2 (09:15→17:12)
[2021-12-13 22:40] VITALS: RESP 18
[2021-12-14] MEDS: IBUPROFEN 600 MG TABLET (FP) PO PRN (04:00)
[2021-12-14] MEDS: SIMETHICONE 80 MG TAB.CHEW (FP) PO PRN (04:00)
[2021-12-14 08:24] LABS: BASO % 0.4 % (0-2.0); EOS % 2.7 % (0-4.5); HEMATOCRIT 33.4 % (32.4-45.2); HEMOGLOBIN 11.6 GM/dL (10.7-15.3); LYMPH % 27.4 % (8-40); MCH 30.4 pg (25.7-33.7); MCHC 34.7 g/dl (32.0-36.0); MEAN CELL VOLUME 87.5 fl (80-96); MEAN PLT VOLUME 9.1 fl (7.5-11.1); MONO % 12.1 % (3.8-10.2); NEUT % 57.4 % (42.8-82.8); PLATELET COUNT 198 10^3/uL (134-434); RBC 3.81 M/mm3 (3.60-5.2); RDW 15.4 % (11.6-15.6); WHITE BLOOD COUNT 7.7 K/mm3 (4.0-10.0)
[2021-12-14] MEDS: PRENATAL VITAMINS W/ FOLIC ACID TABLET (FP) PO SCH (09:42)
[2021-12-14] MEDS: FERROUS SO4 325 MG TABLET (FP) PO SCH (09:42)
[2021-12-14 09:50] VITALS: BP 103/67; PULSE 72; TEMP 97.8
== END 2021-12-14 14:25 | disposition home or self-care (01) | DRG 540 ==
LOC: JDEL 14:40 → JLDR 17:00 → J3W 21:29
PROVIDERS: ADMIT Obstetrics & Gynecology; ATTEND Obstetrics & Gynecology
PROC: 10D00Z1 Extraction of Products of Conception, Low, Open Approach (ICD-10-PCS; principal; 2021-12-11)
DX: O34.219 Maternal care for unspecified type scar from previous cesarean delivery (principal); O36.5930 Maternal care for other known or suspected poor fetal growth, third trimester, not applicable or unspecified; O47.1 False labor at or after 37 completed weeks of gestation; Z3A.38 38 weeks gestation of pregnancy; Z37.0 Single live birth
CPT/HCPCS: 36415; 36600; 59025; 76819-TC; 80048; 82803; 85025; 85610; 85730; 86780; 86850; 86900; 86901; 87389; 88307-TC; C9803-CS; U0003; U0005

== ENCOUNTER 2022-04-10 18:38 | Emergency (ER) | payer OTHER ==
[2022-04-10 18:49] VITALS: BP 114/78; PULSE 90; RESP 18; TEMP 98; BMI 21.4
[2022-04-10 22:41] LABS: BASO % 0.9 % (0-2.0); EOS % 2.2 % (0-4.5); HEMATOCRIT 40.7 % (32.4-45.2); LYMPH % 45.2 % (8-40); MCH 27.4 pg (25.7-33.7); MEAN CELL VOLUME 85.6 fl (80-96); MEAN PLT VOLUME 8.5 fl (7.5-11.1); MONO % 14.6 % (3.8-10.2); NEUT % 37.1 % (42.8-82.8); PLATELET COUNT 392 10^3/uL (134-434); RBC 4.76 M/mm3 (3.60-5.2); RDW 14.9 % (11.6-15.6); WHITE BLOOD COUNT 5.5 K/mm3 (4.0-10.0)
[2022-04-10 22:56] LABS: CALCIUM 9.4 mg/dL (8.5-10.1)
[2022-04-10 22:57] LABS: ALBUMIN 3.6 g/dl (3.4-5.0); BLOOD UREA NITROGEN 11.9 mg/dL (7-18)
[2022-04-10 22:59] LABS: CREATININE 0.8 mg/dL (0.55-1.3)
[2022-04-10 23:01] LABS: TOT PROT 7.3 g/dl (6.4-8.2)
[2022-04-10 23:09] LABS: BILIRUBIN,TOTAL 0.3 mg/dL (0.2-1)
== END 2022-04-11 00:21 | disposition home or self-care (01) ==
LOC: JER 18:38
DX: J40 Bronchitis, not specified as acute or chronic (principal)
CPT/HCPCS: 0241U-QW; 36415; 71046-TC-FY; 71275-TC; 80053; 84703; 85025; 85379; 99285-25; Q9967